=== PATIENT | male | born 1990 | race American Indian/Alaskan Native ===

== ENCOUNTER 2016-12-23 12:20 | Emergency (ER) | payer MEDICAID, OTHER ==
[2016-12-23 12:26] VITALS: BMI 27.5
[2016-12-23 12:29] VITALS: BP 152/88; PULSE 82; RESP 17; TEMP 98.5; O2SAT 99
[2016-12-23] MEDS ORDERED: cefTRIAXone (Rocephin) 250 mg Inj IM STA (13:12)
--- NOTE | 2016-12-23 13:16 | ED PDOC ---
Arrival/HPI - General Chief Complaint: Male Genitourinary Time Seen by Provider: 12/23/16 13:11 Historian: Patient - History of Present Illness Narrative History of Present Illness (Text): 12/23/16 13:13 26 y/o male, no significant pmh, nkda, c/o penile discharge x 2 days. Pt. stated that he was running which he experienced couple episodes of creamy penile discharge when going home, admits sexually active with several sexual partners without condoms, no testicular pain, no urinary symptoms, no change in vision, no throat or eye pain, concerning about gonorrhea/chlamydia and here for the prophylactic shot, no other medical or psychological complaints. Past Medical History - Provider Review Nursing Documentation Reviewed: Yes - Infectious Disease Hx of Infectious Diseases: None - Psychiatric Hx Substance Use: No - Anesthesia Hx Anesthesia: No Family/Social History - Physician Review Nursing Documentation Reviewed: Yes Family/Social History: Unknown Family HX Smoking Status: Never Smoked Hx Alcohol Use: Yes Frequency of alcohol use: Socially Hx Substance Use: No Allergies/Home Meds Allergies/Adverse Reactions: Allergies seafood Allergy (Uncoded 12/23/16 12:26) RASH Home Medications: Home Meds Medication Instructions Recorded Confirmed No Known Home Med 12/23/16 12/23/16 Review of Systems - Review of Systems Constitutional: absent: Fatigue, Fevers Eyes: absent: Vision Changes ENT: absent: Hearing Changes Respiratory: absent: SOB, Cough Cardiovascular: absent: Chest Pain Genitourinary Male: Other (penile discharge). absent: Dysuria, Frequency Skin: absent: Rash, Pruritis Neurological: absent: Headache Physical Exam Vital Signs Reviewed: Yes Vital Signs Temp Pulse Resp BP Pulse Ox 12/23/16 12:28 98.5 F 82 17 152/88 H 99 Temperature: Afebrile Blood Pressure: Hypertensive Pulse: Regular Respiratory Rate: Normal Appearance: Positive for: Well-Appearing, Non-Toxic, Comfortable Pain Distress: None Mental Status: Positive for: Alert and Oriented X 3 - Systems Exam Head: Present: Atraumatic, Normocephalic Pupils: Present: PERRL Extroacular Muscles: Present: EOMI Conjunctiva: Present: Normal Mouth: Present: Moist Mucous Membranes Neck: Present: Normal Range of Motion Respiratory/Chest: Present: Clear to Auscultation, Good Air Exchange. No: Respiratory Distress, Accessory Muscle Use Cardiovascular: Present: Regular Rate and Rhythm, Normal S1, S2. No: Murmurs Abdomen: Present: Normal Bowel Sounds. No: Tenderness, Distention, Peritoneal Signs Genitourinary Male: Present: Normal External Genitalia, Circumcised Penis. No: Lesions, Penile Discharge, Testicle Tenderness, Penile Swelling, Masses, Erythema, Hernias, Testicle Swelling Back: Present: Normal Inspection Upper Extremity: Present: Normal Inspection. No: Cyanosis, Edema Lower Extremity: Present: Normal Inspection. No: Edema Neurological: Present: GCS=15, Speech Normal, Motor Func Grossly Intact, Gait Normal, Memory Normal Skin: Present: Warm, Dry, Normal Color. No: Rashes Psychiatric: Present: Alert, Oriented x 3, Normal Insight, Normal Concentration Medical Decision Making ED Course and Treatment: 12/23/16 13:16 -Pt. refused HIV test, request to have prophylatic treatment for gonorrhea and chlamydia -Rocephin and azithromycin ordered. -Discharge home with education on no sex for 1 week, notify all your sexual partners for STD testing and prophylatic treatment, return to the ER for any new or worsening signs or symptoms. - PA / [employer] / Resident Statement MD/DO has reviewed & agrees with the documentation as recorded. Disposition/Present on Arrival - Present on Arrival Any Indicators Present on Arrival: No History of DVT/PE: No History of Uncontrolled Diabetes: No Urinary Catheter: No History of Decub. Ulcer: No History Surgical Site Infection Following: None - Disposition Have Diagnosis and Disposition been Completed?: Yes Diagnosis: Possible exposure to STD Disposition: HOME/ ROUTINE Disposition Time: 13:17 Patient Plan: Discharge Condition: GOOD Additional Instructions: -Discharge home with education on no sex for 1 week, notify all your sexual partners for STD testing and prophylatic treatment, return to the ER for any new or worsening signs or symptoms. Referrals: [facility] [place] - Follow up with primary Forms: [employer] (French), WORK NOTE
== END 2016-12-23 13:54 | disposition home or self-care (01) ==
LOC: ED 12:20
DX: Z20.2 Contact with and (suspected) exposure to infections with a predominantly sexual mode of transmission (principal)
CPT/HCPCS: 87491; 87591; 96372; 99282; J0696